=== PATIENT | male | born 1990 | race Caucasian/White ===

== ENCOUNTER → 2019-02-13 | Day surgery (SDC) | payer MEDICARE, MEDICAID ==
[~2019-02-13] MED LIST: ACETAMINOPHEN500 M1 PO; ASPIR 8181 MG PO; ATIVAN1 MG PO; BACTRIM DS TAB1 EACH PO; CLOTRIMAZOLE10 MG; COLACE100 MG PO; MYFORTIC360 MG PO; ONDANSETRON HCL4 M2 PO; PEPCID20 MG PO; PREDNISONE 5 MG5 M1 PO; PROGRAF1 MG PO; VALCYTE450 MG PO
--- NOTE | ~2019-02-13 | OP ---
[facility] [address] [place] [address] OPERATIVE REPORT Name: DIANA VILLAFANA Room: [facility]#: [id number] Admission: 02/13/19 Attend Phys: Galo Mendiola Discharge: Date of : 86 Report #: [id number] THIS REPORT FOR: //name// CC: Galo Gutierrez DATE OF SERVICE: 02/13/2019 PREOPERATIVE DIAGNOSIS: End-stage renal disease. POSTOPERATIVE DIAGNOSIS: End-stage renal disease. PROCEDURE: Removal of tunneled intraperitoneal catheter. SURGEON: Galo Mendiola MD ANESTHESIA: General. ESTIMATED BLOOD LOSS: Minimal. SPECIMEN: None. DESCRIPTION OF PROCEDURE: After informed consent was obtained, the patient was brought to the operating room and placed supine. SCDs were placed and working, preoperative antibiotics were administered, general anesthesia was induced. The abdomen was prepped and draped in the usual sterile fashion. A counter incision was made over the internal cuff site measuring approximately 1.5 cm. Cautery dissection was made down to the cuff, which was freed up with cautery. The catheter slid out easily after that. I extended the external opening site 1 cm. The external cuff was dissected around and incised. After this, the catheter slid out very easily. I closed the counterincision site with a running 4-0 Monocryl. The exit site was left open and packed with gauze. Sterile dressings were applied. COMPLICATIONS: None. DISPOSITION: The patient was taken to recovery in satisfactory condition. By: [id number] Mendiola MD /nt
== END | disposition home or self-care (01) ==
LOC: M.SUR 06:45
DX: N18.6 End stage renal disease (principal); Z79.82 Long term (current) use of aspirin; Z79.899 Other long term (current) drug therapy